=== PATIENT | male | born 1990 | race Caucasian/White ===

== ENCOUNTER → 2020-11-25 | Outpatient (CLI) | payer OTHER ==
--- NOTE | 2020-11-25 16:47 | XRAY Report ---
PROCEDURE: Chest 2 View X-Ray INDICATIONS: CHEST TIGHTNESS TECHNIQUE: 2 view(s) of the chest. COMPARISON: None. FINDINGS: Surgical changes and devices: None. Lungs and pleura: No pleural effusions or pneumothorax. Lungs are clear. Mediastinum: Mediastinal contours are normal. Heart size is normal. Bones and chest wall: No suspicious bony abnormalities. Soft tissues appear unremarkable. IMPRESSION: No acute cardiopulmonary process demonstrated radiographically. Reviewed by: Nilesh Martinez MD on 11/25/2020 4:46 PM PDT Approved by: Nilesh Martinez MD on 11/25/2020 4:46 PM PDT Station ID: [id number]
== END ==
LOC: DI.N 08:00
PROVIDERS: ATTEND Family Medicine
DX: R07.89 Other chest pain (principal)

== ENCOUNTER 2021-01-09 15:32 | Outpatient (CLI) | payer OTHER ==
[2021-01-09 16:34] VITALS: BP 120/75
--- NOTE | 2021-01-09 16:34 | SLEEP CARE CONSULTATION ---
Information from patient questionnaire entered by Chico Arana. I have reviewed and concur with the information entered by Chico Arana. This document represents the service I personally performed and the decisions made by me, Molly Ordoñez ARNP. History of Present Illness Service Date and Time: 01/09/2021 1532 Reason for Visit: New patient Chief Complaint: reports: Unrefreshed sleep, Snoring, Excessive daytime sleepiness, Fatigue, Frequent awakenings at night. denies: Observed pauses in breathing Date of Onset: 5-6 years Usual bedtime: 10 PM Time it takes to fall asleep: 5-10 minutes Snores at night: Yes Observed to quit breathing while asleep: No Sleeps alone due to snoring: No Number of times waking at night: 10-15 Reasons for waking at night: reports: Other (Noise, unknown reason, Feeling I need to move). denies: Choking, Snoring, Gasping for air Toss, Turn, or Twitch while sleeping: Yes Recalls having dreams: No Usually gets out of bed at: 5:30 - 6:30 AM Feels refreshed in the morning: No Morning headache: Yes (Not often, by noon; 1 time a month) Sleepy or fatigued during the day: Yes Ever fallen asleep while driving: No (Have to move arms some times to stay awake on long drive) Takes day naps: No Dreams during day naps: No Prior sleep studies: No Additional HPI information: I had the pleasure of seeing CHRISTINA MARES today regarding the possibility of him having a sleep disorder. His current complaints are excessive daytime sleepiness, fatigue, frequent night awakenings and snoring. He states he wakes up not feeling rested and tired throughout the day. He states he snores loudly but has not been told he has any gasping or choking in his sleep. He has not been told that he has any pauses in breathing either. He states his father snores "like a freight train" but has never been tested. He wakes up between 10- 15 times at night and most of the time it is due to feeling like he needs to move. He will also feel hot an have to remove the covers. He has some issues with concentrating on certain subjects and will forget things that his tells him. He has difficulty keeping his legs still when he gets into bed. He has a history of asthma and nasal polyps. He has had several surgeries to remove the polyps, the last one being 2-3 years ago. - Parasomnia Symptoms Ever been unable to move upon waking from sleep: No Walks in sleep: No Talks in sleep: No Ever acted out dreams in sleep: No Ever felt weak in the knees when startled or emotional: No Bothered by creepy, crawly, restless sensations in legs: Yes (usually when getting to bed/ trying to rest) Problems with memory or concentration: Yes (both, hard to concentration sometimes and will forget things his said) Subjective Initial [place] Sleepiness Scale score: 19 (in 2020) Past Medical History Past Medical History: reports: Asthma, Other (nasal polyps, removed multiple times, 2-3 years ago last ones) Social History 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 Patient is and lives in [place]. Have you smoked in the past 12 months: No Alcohol use: Yes Alcohol amount and frequency: 1 drink once per 1 - 2 month Caffeine use: Yes Caffeine amount and frequency: 1 coffee, 1 per day (morning); just in last month; before was 3-4 per day Family History Family history of sleep disordered breathing: Yes Family Hx Sleep Apnea: Father: Snoring, Sibling: Snoring, Grandparent: Snoring, Sleep apnea - Untreated Allergies and Home Medications Drug allergies reviewed: Yes (Ibuprofen, Aspirin) Home medication list reviewed: Yes Allergy and home medication list: Dulera inhaler, daily Albuterol inhaler, rescue as needed Zyrtec, daily Review of Systems Weight gain over past 5 years: 90 Cardiovascular: denies: high blood pressure Respiratory: reports: shortness of breath, wheeze Neurological: reports: headaches Ear/Nose/Throat: reports: nasal congestion, sinus problems, wisdom teeth removed, other (Nasal polyps). denies: tonsillectomy Endocrine: reports: sluggishness (tired), too hot or cold (Get hot at night) Immunologic: reports: allergies to food or environment (Seasonal) Physical Exam Blood Pressure: 120/75 Cuff size: wrist Heart Rate: 77 O2 Saturation: 96 Height: 5 ft 11 in Weight: 265 lb Body Mass Index: 36.9 BMI Classification: Obese Neck circumference: 17.25 (inches) Nostrils: patent to airflow Mouth and throat: narrow oropharynx Soft palate: long Hard palate: normal Uvula: normal Uvula visualization: 100% Mallampati Class I Tongue: enlarged in size with teeth arenas on lateral edges Tonsils: 1+ Neck: normal w/o lymphadenopathy or thyromegaly Heart: regular rate and rhythm Lungs: clear bilaterally Impression and Plan 1. Suspected Obstructive Sleep Apnea-Hypopnea Syndrome, as suggested by a history of loud and irregular snoring, morning headache, frequent awakening during the night, unrefreshed sleep, cognitive impairment, and excessive daytime sleepiness. Narrow oropharynx and obesity are common predisposing factors for obstructive sleep apnea-hypopnea syndrome. I recommend proceeding to polysomnography to confirm the diagnosis and to assess severity. If the patient has significant sleep disordered breathing, a manual CPAP titration study will also be performed to find the optimal treatment pressure. I informed the patient of what the sleep studies involve and after some discussion, obtained agreement to proceed. The pathophysiology of obstructive sleep apnea-hypopnea syndrome was discussed with the patient and health risks of cardiovascular and cerebrovascular disease if not treated. AAS brochure for obstructive sleep apnea-hypopnea syndrome given and reviewed. Risks of drowsy driving discussed in detail and patient advised to avoid long distance driving and to tie puller at the first sign of drowsiness. Patient agreed to plan. * Schedule polysomnography +- manual CPAP titration study and return in 1-2 w eeks after the study to discuss result and initiate therapy. * Avoid long distance driving or driving when feeling sleepy. * Avoid alcohol, sedative and muscle relaxant around bedtime. * Attempt to lose weight. * Review instructions provided by trained office staff on how to prepare for the sleep study. * Return for follow-up after sleep study completed. Counseling Topics: Weight loss health impact Visit Type: In Office Time Spent with Patient (minutes): 31 Provider Statement: I spent 100% of the Face to Face Visit with the patient with greater than 50% spent counseling the patient and coordination of care.
== END 2021-01-09 15:33 | disposition home or self-care (01) ==
LOC: SC 15:32
PROVIDERS: ATTEND Nurse Practitioner Family
DX: G47.10 Hypersomnia, unspecified (principal); R06.83 Snoring; R51.9 Headache, unspecified; G47.8 Other sleep disorders; R41.89 Other symptoms and signs involving cognitive functions and awareness; E66.9 Obesity, unspecified; Z68.36 Body mass index [BMI] 36.0-36.9, adult
CPT/HCPCS: 99203; 99212

== ENCOUNTER 2021-01-13 15:01 | Outpatient (CLI) | payer OTHER | END 2021-01-13 15:02 | disposition home or self-care (01) | LOC: SC 15:01 | PROVIDERS: ATTEND Nurse Practitioner Family | DX: G47.33 Obstructive sleep apnea (adult) (pediatric) (principal); R09.02 Hypoxemia | CPT/HCPCS: 95806 ==

== ENCOUNTER 2021-01-23 15:34 | Outpatient (CLI) | payer OTHER ==
--- NOTE | 2021-01-23 16:13 | SLEEP CARE CONSULTATION ---
Information from patient questionnaire entered by Radha Vazquez. I have reviewed and concur with the information entered by Radha Vazquez. This document represents the service I personally performed and the decisions made by , Molly Ordoñez ARNP. History of Present Illness Service Date and Time: 01/23/20211533 Initial [place] Sleepiness Scale score: 19 (in 2020) Current [place] Sleepiness Scale score: 12 Additional HPI information: CHRISTINA MARES returns for follow up and results of the recently performed home sleep study. I explained the pathophysiology behind obstructive sleep apnea. We then spent quite a bit of time discussing different treatment options. For mild obstructive sleep apnea, surgery and oral appliance are alternatives to nasal CPAP therapy but in moderate or severe cases, nasal CPAP is the most effective and reliable treatment. Because apnea is primarily in supine position, then positional management therapy could be effective. Methods discussed such as positioning with pillows, using a T-shirt with tennis balls in the back, and shown commercial products that have a pillow format on back to prevent supine sleep. I reviewed the impact of weight changes on sleep apnea and strongly recommended losing weight. After some discussion, the patient opted to go with the nasal CPAP therapy. Nasal autoCPAP set at 4-15 cmH20 will be ordered with rationale explained. A manual titration study will be ordered if unable to find optimal pressure with office adjustments. I explained how CPAP machine works with sample devices Resp[employer]ics Dreamstation and [employer] Systems [id number] and what to expect when using the machine. Using CPAP every night in order to get used to it was emphasized. Patient advised to put CPAP mask on before getting into bed so as not to fall asleep without CPAP. To assist acclimation to CPAP use, it could also be used for a short time during day while reading or watching TV. The patient was instructed to call the CPAP supplier to discuss any mechanical problem that may occur. If the mask given is uncomfortable or is difficult to keep on through the night even with adjustment, contact the CPAP supplier as many will replace with another mask style if notified before 30 days. If snoring or perceives is not getting enough air or too much air from the machine, notify this office. [facility] patient education PAP tips reviewed and given to patient. Patient counseled not drink alcohol less than 4 hours before bedtime as it can increase snoring and apnea. Patient was cautioned about risks of drowsy driving until sleepiness symptoms resolve. Sleep Study - Results Type of Sleep Study: Home sleep study Prior sleep studies: No Polysomnography/Home Sleep Study results: Physician Impression: The quality of the study is good. The length of the study is adequate (> 240 minutes). Please also see the tabulated and graphic data. 1. Obstructive Sleep Apnea-Hypopnea (ICD-10 G47.33), mild, with an AHI of 7.9/hr and lionel SaO2 of 88%. During the study, the patient had 16 apneas (16 obstructive, 0 central, 0 mixed) and 46 hypopneas. The longest episode lasted 98.5 seconds. The patient did not sleep supine during this study (supine AHI was 0 and non-supine, 7.86). 2. Hypoxemia (ICD-10 R09.02), minimal, with the lowest oxygen saturation of 88 % and 1.3 minutes with SaO2 under 90%. Baseline oxygen saturation was normal (Average oxygen saturation was 93%). Allergies and Home Medications Home medication list reviewed: Yes (no changes) Review of Systems Review of systems same as previous: Yes (no changes) Physical Exam Heart Rate: 97 O2 Saturation: 96 Height: 5 ft 11 in Weight: 264 lb Body Mass Index: 36.8 BMI Classification: Obese Impression and Plan 1. Obstructive Sleep Apnea-Hypopnea Syndrome, mild, with lowest oxygen saturation of 88%. Obviously this is the cause of the patients symptoms of unrefreshed sleep, and excessive daytime sleepiness. Positive pressure therapy could benefit asthma. As mentioned above, the patient will be started on nasal autoCPAP therapy with pressure set at 4-15 cmH2O. A manual titration study will be completed if unable to find optimal treatment pressure with office adjustments. Compliance guidelines also reviewed. A copy of compliance guidelines will be given for reference at check out. 2. Hypoxemia, minimal, with the lowest oxygen saturation of 88 % and 1.3 minutes with SaO2 under 90%. His baseline oxygen saturation was normal with an average oxygen saturation of 93%. * Nasal auto CPAP therapy, pressure at 4-15 cm H2O. * Attempt to lose weight. * Avoid alcohol consumption near bedtime. * Avoid supine sleep until using CPAP. * The patient is again cautioned about driving until sleepiness completely resolves. * Return one month after CPAP obtained. I will assess response to therapy and compliance at that time. Counseling Topics: Weight loss health impact Visit Type: In Office Time Spent with Patient (minutes): 16 Provider Statement: I spent 100% of the Face to Face Visit with the patient with greater than 50% spent counseling the patient and coordination of care.
== END 2021-01-23 15:35 | disposition home or self-care (01) ==
LOC: SC 15:34
PROVIDERS: ATTEND Nurse Practitioner Family
DX: G47.33 Obstructive sleep apnea (adult) (pediatric) (principal); R09.02 Hypoxemia; E66.9 Obesity, unspecified; Z68.36 Body mass index [BMI] 36.0-36.9, adult
CPT/HCPCS: 99212

== ENCOUNTER 2021-01-28 19:32 | Outpatient (CLI) | payer OTHER ==
--- NOTE | 2021-01-28 21:02 | Ultrasound Report ---
PROCEDURE: Head or Neck Soft Tissue INDICATIONS: NECK SWELLING TECHNIQUE: Real-time scanning was performed of the thyroid gland, with image documentation. COMPARISON: None. FINDINGS: Right: Right thyroid lobe measures 4.4 x 1.4 x 2 cm in size. Left: Left thyroid lobe measures 3.9 x 1.5 x 1.3 cm in size. Isthmus: Isthmus measures 0.4 cm in thickness. Mildly heterogeneous thyroid parenchymal echotexture is seen. No discrete thyroid nodule or mass is s een. IMPRESSION: Mildly heterogeneous thyroid parenchymal echotexture. No discrete thyroid nodule or mass is seen. Reviewed by: Sourav Mustafa MD on 01/28/2021 9:01 PM PDT Approved by: Sourav Mustafa MD on 01/28/2021 9:01 PM PDT Station ID: [id number]
== END 2021-01-28 19:33 | disposition home or self-care (01) ==
LOC: DI 19:32
PROVIDERS: ATTEND Family Medicine
DX: R22.1 Localized swelling, mass and lump, neck (principal)

== ENCOUNTER 2021-04-03 15:03 | Outpatient (CLI) | payer OTHER ==
[2021-04-03 15:30] VITALS: BP 124/79
--- NOTE | 2021-04-03 15:30 | SLEEP CARE CONSULTATION ---
Information from patient questionnaire entered by Penny Greer MA. I have reviewed and concur with the information entered by Penny Greer MA. This document represents the service I personally performed and the decisions made by , Molly Ordoñez ARNP. History of Present Illness Service Date and Time: 04/03/2021 1503 Previous diagnosis: Mild, Obstructive Sleep Apnea-Hypopnea Syndrome AHI: 7.9 Reason for follow up: first compliance Equipment type: CPAP Equipment obtained from: [employer] (got initial supplies) Mask style: Full face Backup mask available: No (will keep old mask when replaced) Last cushion change: 1 month Prior sleep studies: No Type of Sleep Study: Home sleep study HPI additional information: CHRISTINA MARES was diagnosed to have mild, AHI 7.9, obstructive sleep apnea- hypopnea syndrome and returned today for CPAP therapy first compliance follow- up. Sleep Study - Results Type of Sleep Study: Home sleep study Prior sleep studies: No CPAP Compliance Data - Data Reviewed with Patient Average duration of nightly device use: 2 hours 32 minutes Compliance rate %: 17 Current pressure setting (cmH2O): 4 - 15 (median 4.8, avg 6.7, max 7.4) Average residual AHI: 0.8 Central apnea: .1 Obstructive apnea: .6 Subjective Missed days of use due to: reports: mask issues (will take off when moving around while sleeping) Patient concerns: denies: aerophagia, mask discomfort, air blowing in eyes, mask leak noise, condensation in mask/hose, nasal congestion, dry mouth, nose, throat, epistaxis, other Observed to snore while using device: No Current pressure setting perceived as: comfortable On therapy, patient: reports: sleeping better, awakening more refreshed, being more awake and alert during the day, more rested overall. denies: drowsiness while driving Initial [place] Sleepiness Scale score: 19 (in 2020) Current [place] Sleepiness Scale score: 13 (in 2020) Allergies and Home Medications Home medication list reviewed: Yes (no changes) Review of Systems Review of systems same as previous: Yes (no changes) Physical Exam Vital signs obtained and entered by: ISIDRO Garcia Blood Pressure: 124/79 (left) Cuff size: wrist Heart Rate: 76 O2 Saturation: 98 (with mask) Height: 5 ft 11 in Weight: 258 lb (with boots) Body Mass Index: 35.9 BMI Classification: Obese Impression and Plan 1. Obstructive Sleep Apnea-Hypopnea Syndrome, mild, with poor treatment comp liance and excellent apnea control. On CPAP therapy, the patient has better sleep quality and is more rested overall. Patient states he moves a lot when he is sleeping and he will just get frustrated with the hose and take the mask off. I discussed with him adding 10 to 15 minutes a night until he is up to compliance of 4 hours a night. This will improve his compliance and get him better benefit. He voiced understanding and agreement with plan. The patients pressure will be changed to autoCPAP 5-7 cmH20 to reflect pressure being used. Patient advised to contact me if pressure change is uncomfortable so that it can be adjusted. Goals for apnea control discussed. Patient states he has been trying to lose weight with exercise and will continue to do so. Patient's apnea severity and rationale for treatment to reduce apnea, improve sleep quality and reduce cardiovascular and cerebrovascular events was reviewed. I also reviewed the benefit of consistent device use of CPAP for asthma. * Change auto CPAP pressure to 5-7 cmH2O * Notify me if snoring with mask or feeling that the pressure is too much or too little * Continue to try to lose weight * Call this office if any problems using CPAP * Return for follow up in 1-2 months, or sooner if concerns arise Counseling Topics: Spare mask, Weight loss health impact Visit Type: In Office Time Spent with Patient (minutes): 22 Provider Statement: I spent 100% of the Face to Face Visit with the patient with greater than 50% spent counseling the patient and coordination of care.
== END 2021-04-03 15:04 | disposition home or self-care (01) ==
LOC: SC 15:03
PROVIDERS: ATTEND Nurse Practitioner Family
DX: G47.33 Obstructive sleep apnea (adult) (pediatric) (principal); E66.9 Obesity, unspecified; Z68.35 Body mass index [BMI] 35.0-35.9, adult
CPT/HCPCS: 99212

== ENCOUNTER 2021-06-02 08:00 | Outpatient (CLI) | payer OTHER | END 2021-06-02 23:59 | LOC: LAB.N 08:00 | PROVIDERS: ATTEND Nurse Practitioner | DX: R05.3 Chronic cough (principal); Z20.822 Contact with and (suspected) exposure to COVID-19 ==

== ENCOUNTER 2021-06-05 14:56 | Outpatient (CLI) | payer OTHER ==
[2021-06-05 15:27] VITALS: BP 136/89
--- NOTE | 2021-06-05 15:27 | SLEEP CARE CONSULTATION ---
Information from patient questionnaire entered by Penny Kong MA. I have reviewed and concur with the information entered by Penny Kong MA. This document represents the service I personally performed and the decisions made by , Molly Ordoñez ARNP. History of Present Illness Service Date and Time: 06/05/2021 1456 Previous diagnosis: Mild, Obstructive Sleep Apnea-Hypopnea Syndrome AHI: 7.9 Reason for follow up: other (PRESSURE CHANGE) Equipment type: CPAP Equipment obtained from: [employer] (getting supplies) Mask style: Full face Backup mask available: Yes (other mask) Last cushion change: few weeks Prior sleep studies: No Type of Sleep Study: Home sleep study HPI additional information: CHRISTINA MARES was diagnosed to have mild, AHI 7.9, obstructive sleep apnea- hypopnea syndrome and returned today for CPAP therapy two months with pressure change follow-up. Sleep Study - Results Type of Sleep Study: Home sleep study Prior sleep studies: No CPAP Compliance Data - Data Reviewed with Patient Average duration of nightly device use: 4 HOURS 5 MINUTES Compliance rate %: 23 Current pressure setting (cmH2O): 5-7 Average residual AHI: 0.5 Central apnea: 0 Obstructive apnea: .5 Average large leak: .4 Subjective Missed days of use due to: reports: illness, travel, other (chest congestion when uses CPAP, cough up phlegm in morning) Patient concerns: denies: aerophagia, mask discomfort, air blowing in eyes, mask leak noise, condensation in mask/hose, nasal congestion, dry mouth, nose, throat, epistaxis, other Observed to snore while using device: No Current pressure setting perceived as: comfortable On therapy, patient: reports: sleeping better, awakening more refreshed, being more awake and alert during the day, more rested overall. denies: drowsiness while driving Initial [place] Sleepiness Scale score: 19 Current [place] Sleepiness Scale score: 11 (2021) Allergies and Home Medications Home medication list reviewed: Yes (prednisone taper, last day) Review of Systems Review of systems same as previous: No (Upper respiratory inflammation (has asthma)) Physical Exam Vital signs obtained and entered by: Shayy KONG CMA [facility] Blood Pressure: 136/89 (RIGHT, PULSE 79) Heart Rate: 81 O2 Saturation: 97 (2 MASKS) Height: 5 ft 11 in Weight: 260 lb (CLOTHES) Body Mass Index: 36.2 BMI Classification: Obese Impression and Plan 1. Obstructive Sleep Apnea-Hypopnea Syndrome, mild, with poor treatment compliance and excellent apnea control. On CPAP therapy, the patient has better sleep quality and is more rested overall. Patient has reported compliance but has increased his compliance by about 10% from his last visit. He has been having difficulty because he states his chest feels congested after using the CPAP. He denies any dryness in his throat or mouth or nose. He states he does have nasal polyps for which he rinses his sinuses regularly but denies nasal congestion. I advised the patient to turn the humidity down to 1 or completely off to see if this improves the feeling of chest congestion. I discussed with him how to adjust to make sure that his mouth stays moist. He voiced understanding and will try this at home. Patient does have a history of asthma and is on the last day of a course of prednisone for some lung inflammation. Compliance guidelines reviewed for insurance coverage. Patient was counseled on the difference between meeting compliance and optimal use of CPAP. Optimal use of CPAP is use of CPAP with all sleep to obtain maximum benefit of treatment. Patient is encouraged to use CPAP with all sleep. Patient's apnea severity and rationale for treatment to reduce apnea, improve sleep quality and reduce cardiovascular and cerebrovascular events was reviewed. I also reviewed the benefit of consistent device use of CPAP for asthma. Patient was encouraged to lose weight for their overall health and to reduce apneas. * Continue auto CPAP pressure at 5-7 cmH2O * Reduce humidifier to 1 or turn off to reduce feelings of chest congestion * Notify me if snoring with mask or feeling that the pressure is too much or too little * Attempt to lose weight * Call this office if any problems using CPAP * Return for follow up in 1-2 months, or sooner if concerns arise Counseling Topics: Spare mask, Weight loss health impact Visit Type: In Office Time Spent with Patient (minutes): 23 Provider Statement: I spent 100% of the Face to Face Visit with the patient with greater than 50% spent counseling the patient and coordination of care.
== END 2021-06-05 14:57 | disposition home or self-care (01) ==
LOC: SC 14:56
PROVIDERS: ATTEND Nurse Practitioner Family
DX: G47.33 Obstructive sleep apnea (adult) (pediatric) (principal); E66.9 Obesity, unspecified; Z68.36 Body mass index [BMI] 36.0-36.9, adult
CPT/HCPCS: 99212; 99213

== ENCOUNTER 2021-07-03 15:27 | Outpatient (CLI) | payer OTHER ==
--- NOTE | 2021-07-03 15:51 | SLEEP CARE CONSULTATION ---
Information from patient questionnaire entered by Penny Greer MA. I have reviewed and concur with the information entered by Penny Greer MA. This document represents the service I personally performed and the decisions made by , Molly Ordoñez ARNP. History of Present Illness Service Date and Time: 07/03/2021 1527 Previous diagnosis: Mild, Obstructive Sleep Apnea-Hypopnea Syndrome AHI: 7.9 Reason for follow up: one month Equipment type: CPAP Equipment obtained from: [employer] (getting supplies) Mask style: Full face Backup mask available: No (will keep old mask when replaced) Last cushion change: 3 months Prior sleep studies: No Type of Sleep Study: Home sleep study HPI additional information: CHRISTINA MARES was diagnosed to have mild, AHI 7.9, obstructive sleep apnea- hypopnea syndrome and returned today for CPAP therapy one month follow-up. Sleep Study - Results Type of Sleep Study: Home sleep study Prior sleep studies: No CPAP Compliance Data - Data Reviewed with Patient Average duration of nightly device use: 5 HOURS 48 MINUTES Compliance rate %: 77 Current pressure setting (cmH2O): 5-7 Average residual AHI: 0.6 Central apnea: .1 Obstructive apnea: .5 Average large leak: 2.3 Subjective Patient concerns: reports: other (chest tight after waking, usual resides with albuterol. ). denies: aerophagia, mask discomfort, air blowing in eyes, mask leak noise, condensation in mask/hose, nasal congestion, dry mouth, nose, throat, epistaxis Observed to snore while using device: No Current pressure setting perceived as: comfortable On therapy, patient: reports: sleeping better, awakening more refreshed, being more awake and alert during the day, more rested overall. denies: drowsiness while driving Initial [place] Sleepiness Scale score: 19 (in 2020) Current [place] Sleepiness Scale score: 12 (2021) Allergies and Home Medications Known drug allergies: Yes (Ibprophen) Drug allergies reviewed: Yes Home medication list reviewed: Yes (no changes) Review of Systems Review of systems same as previous: Yes (no changes) Physical Exam Vital signs obtained and entered by: ISIDRO KIRKLAND Blood Pressure: 123/81 (left, pulse 78, resp 16,) Cuff size: wrist Heart Rate: 63 O2 Saturation: 95 (paper mask) Height: 5 ft 11 in Weight: 255 lb Weight change since last visit: 5 lb loss Body Mass Index: 35.5 BMI Classification: Obese Impression and Plan 1. Obstructive Sleep Apnea-Hypopnea Syndrome, mild, with good treatment compliance and excellent apnea control. On CPAP therapy, the patient has better sleep quality and is more rested overall. Patient states he has had no shortness of breath or chest tightness with using his CPAP. But, he states in the morning he seems to have a little more chest tightness that resolves with using his albuterol inhaler. Patient does have a history of asthma. Patient's apnea severity and rationale for treatment to reduce apnea, improve sleep quality and reduce cardiovascular and cerebrovascular events was reviewed. I also reviewed the benefit of consistent device use of CPAP for asthma. 2. Obesity, unspecified. Patient has lost weight. Currently patients BMI is 35.5. Obesity increases the risk of apnea, CPAP pressure requirements and overall health risks especially cardiovascular and diabetes. Thus patient is advised to continue to try to lose weight. Weight loss can be done with reducing portion size, reducing refined foods and balancing content with vegetables, fruit and whole grain foods. In addition, patient encouraged to get regular exercise. The patient's CPAP pressure range should accommodate some weight loss. Symptoms to report for additional pressure adjustment discussed. * Continue auto CPAP pressure at 5-7 cmH2O * Notify me if snoring with mask or feeling that the pressure is too much or too little * Attempt to lose weight * Call this office if any problems using CPAP * Return for follow up in 6 months, or sooner if concerns arise Counseling Topics: Spare mask, Weight loss health impact Visit Type: In Office Time Spent with Patient (minutes): 13 Provider Statement: I spent 100% of the Face to Face Visit with the patient with greater than 50% spent counseling the patient and coordination of care.
[2021-07-03 15:52] VITALS: BP 123/81
== END 2021-07-03 15:28 | disposition home or self-care (01) ==
LOC: SC 15:27
PROVIDERS: ATTEND Nurse Practitioner Family
DX: G47.33 Obstructive sleep apnea (adult) (pediatric) (principal); E66.9 Obesity, unspecified; Z68.35 Body mass index [BMI] 35.0-35.9, adult
CPT/HCPCS: 99212

== ENCOUNTER 2021-09-30 16:33 | Outpatient (CLI) | payer OTHER ==
[2021-09-30 20:52] LABS: ALBUMIN 4.7 g/dL (3.2-5.5); ALBUMIN/GLOBULIN RATIO 1.6 (1.0-2.2); BILIRUBIN,TOTAL 1.2 mg/dL (0.2-1.0); CALCIUM 9.6 mg/dL (8.5-10.3); CREATININE 1.1 mg/dL (0.6-1.2); POTASSIUM 4.1 mmol/L (3.5-5.0); TOTAL PROTEIN 7.7 g/dL (6.7-8.2)
[2021-09-30 20:59] LABS: BASOPHILS % (AUTO) 0.4 %; EOSINOPHILS # (AUTO) 0.2 10^3/uL (0.0-0.7); HCT - HEMATOCRIT 44.8 % (42.0-52.0); HGB - HEMOGLOBIN 14.9 g/dL (14.0-18.0); LYMPHOCYTES % (AUTO) 31.9 %; MEAN CORPUSCULAR HEMOGLOBIN 27.3 pg (27.0-31.0); MEAN CORPUSCULAR HGB CONC 33.3 g/dL (32.0-36.0); MEAN CORPUSCULAR VOLUME 82.1 fL (80.0-94.0); MONOCYTES # (AUTO) 0.8 10^3/uL (0.0-1.0); MONOCYTES % (AUTO) 8.7 %; NEUTROPHILS # (AUTO) 5.3 10^3/uL (1.5-6.6); NEUTROPHILS % (AUTO) 56.8 %; PLT - PLATELET COUNT 200 10^3/uL (130-450); RED BLOOD COUNT 5.46 10^6/uL (4.70-6.10); RED CELL DISTRIBUTION WIDTH 12.6 % (12.0-15.0); WHITE BLOOD COUNT 9.3 x10^3/uL (4.8-10.8)
[2021-09-30 21:01] LABS: THYROID STIMULATING HORMONE 1.46 uIU/mL (0.34-5.60)
[2021-09-30 21:07] LABS: FERRITIN 86.7 ng/mL (23.9-336.2)
== END 2021-09-30 16:34 | disposition home or self-care (01) ==
LOC: LAB.N 16:33
PROVIDERS: ATTEND Physician Assistant
DX: G25.81 Restless legs syndrome (principal); Z13.29 Encounter for screening for other suspected endocrine disorder
CPT/HCPCS: 36415; 80053; 82728; 83540; 84443; 84466; 85025

== ENCOUNTER 2024-01-02 09:05 | Outpatient (CLI) | payer OTHER ==
--- NOTE | 2024-01-02 11:37 | XRAY Report ---
PROCEDURE: Lumbar Spine 2-3V INDICATIONS: SCIATICA,LEFT TECHNIQUE: 3 views of the lumbar spine were acquired. COMPARISON: None. FINDINGS: Surgical change: None. Bones: 5 [id number] vertebrae are present. Slight leftward curvature of the lumbar spine, cente red at L4-5. No vertebral body compression fractures. No suspicious bony lesions. Soft tissues: Overlying bowel gas pattern is normal. No suspicious soft tissue calcifications. IMPRESSION: Slight leftward curvature of the lumbar spine, centered at L4-5. No significant bony abnormality or d egenerative change otherwise. Reviewed by: Yonatan Desouza MD on 01/02/2024 11:35 AM PDT Approved by: Yonatan Desouza MD on 01/02/2024 11:35 AM PDT Station ID: [id number]
== END 2024-01-02 09:06 | disposition home or self-care (01) ==
LOC: DI 09:05
PROVIDERS: ATTEND Family Medicine
DX: M54.32 Sciatica, left side (principal)

== ENCOUNTER 2024-01-11 14:58 | Outpatient (CLI) | payer OTHER ==
--- NOTE | 2024-01-12 14:00 | MRI Report ---
PROCEDURE: Lumbar Spine WO INDICATIONS: LEFT SCIATICA TECHNIQUE: Noncontrast sagittal T1 spin echo and T2 fast echo, sagittal STIR, axial T1 and T2 fast spin echo thr ough the lumbar spine. In cases with scoliosis, additional coronal T2 fast spin echo may be performe d. COMPARISON: None. FINDINGS: Image quality: Excellent. Alignment and Curvature: There is minimal retrolisthesis seen at L5-S1. Bone Marrow: Marrow is of normal overall signal. No acute vertebral body compression fractures. Spinal Cord: Conus medullaris terminates at the L1 level. Visualized cord demonstrates normal signa l and size. Paraspinous Soft Tissues: No paravertebral masses. T12-L1: Normal in appearance. L1-L2: Normal in appearance. L2-L3: Normal in appearance. L3-L4: Normal in appearance. L4-L5: The disc height and disc signal are well preserved. Mild disc bulge is seen. Mild to moder ate facet hypertrophy can be seen. There is mild left-sided and [id number] right-sided neurofor aminal layering. No significant central canal narrowing is seen. L5-S1: Mild to moderate loss of disc height and disc signal can be seen. There is a central/left di sc extrusion, with mild inferior migration of disc material. There is associated mass effect seen upo n the transiting left S1 nerve root, as on series 5 image 43. Mild facet hypertrophy is seen. There is at least moderate bilateral neuroforaminal narrowing seen. Moderate central canal narrowing is see n. IMPRESSION: Left L5-S1 disc extrusion, with associated mass effect upon the transiting left S1 nerve root. Reviewed by: Bethel Euceda MD on 01/12/2024 12:59 PM JOE Approved by: Bethel Euceda MD on 01/12/2024 12:59 PM JOE Station ID: [id number]
== END 2024-01-11 14:59 | disposition home or self-care (01) ==
LOC: DI 14:58
PROVIDERS: ATTEND Family Medicine
DX: M51.17 Intervertebral disc disorders with radiculopathy, lumbosacral region (principal); M47.816 Spondylosis without myelopathy or radiculopathy, lumbar region; M51.36 Other intervertebral disc degeneration, lumbar region; M47.817 Spondylosis without myelopathy or radiculopathy, lumbosacral region; M51.37 Other intervertebral disc degeneration, lumbosacral region; M48.07 Spinal stenosis, lumbosacral region